=== PATIENT | male | born 1995 | race Hispanic/Latino ===

== ENCOUNTER 2017-06-13 03:07 | Emergency (ER) | payer SELFPAY | END 2017-06-13 04:36 | disposition home or self-care (01) | LOC: EDH 03:07 | DX: S50.812A Abrasion of left forearm, initial encounter (principal); X58.XXXA Exposure to other specified factors, initial encounter; Y93.89 Activity, other specified; Y92.488 Other paved roadways as the place of occurrence of the external cause; Y99.8 Other external cause status | CPT/HCPCS: 99282 ==